=== PATIENT | male | born 1965 | race Caucasian/White ===

== ENCOUNTER 2020-06-02 15:00 | Outpatient (RCR) | payer OTHER, SELFPAY ==
--- NOTE | 2020-05-29 09:31 | HO.TMSDAILY2 ---
TMS Daily Progress Note Daily TMS Progress Note Week #: 6 Treatment #(09-26): 34 PHQ-9 Pre-Treatment (09-23): 17 PHQ-9 Most Recent (09-23): 7 Reviewed: TMS Tech Note Reviewed Verification: I have reviewed the TMS New Car Get Ready Mechanic Note and agree with the contents. The patient remains a candidate to continue TMS treatment per protocol.
--- NOTE | 2020-05-29 21:52 | HO.TMSDAILY2 ---
TMS Daily Progress Note Daily TMS Progress Note Week #: 6 Treatment #(09-26): 33 PHQ-9 Pre-Treatment (09-23): 17 PHQ-9 Most Recent (09-23): 7 Reviewed: TMS Tech Note Reviewed Verification: I have reviewed the TMS Critical Systems Technician Note and agree with the contents. The patient remains a candidate to continue TMS treatment per protocol.
--- NOTE | 2020-06-01 22:56 | P.PNPS_ITS ---
TMS Daily Progress Note Daily TMS Progress Note Week #: 8 Treatment #(09-26): 35 PHQ-9 Pre-Treatment (09-23): 17 PHQ-9 Most Recent (09-23): 7 NAHOMY-7 Pre-Treatment (0-21): 11 NAHOMY-7 Most Recent (0-21): 6 CGI-I Most Recent: 0 = Not Assessed Q-LES-Q-SF Most Recent: 75 Reviewed: TMS Tech Note Reviewed Verification: I have reviewed the TMS Ship Superintendent Note and agree with the contents. The patient remains a candidate to continue TMS treatment per protocol.
--- NOTE | 2020-06-02 15:30 | P.PNPS_ITS ---
TMS Daily Progress Note Daily TMS Progress Note Week #: 8 Treatment #(09-26): 35 PHQ-9 Pre-Treatment (09-23): 17 PHQ-9 Most Recent (09-23): 7 Reviewed: TMS Tech Note Reviewed Verification: I have reviewed the TMS Production Corrugator Note and agree with the contents. The patient remains a candidate to continue TMS treatment per protocol.
--- NOTE | 2020-06-02 15:35 | P.PNPS_ITS ---
TMS Daily Progress Note Daily TMS Progress Note Week #: 8 Treatment #(09-26): 36 PHQ-9 Pre-Treatment (09-23): 17 PHQ-9 Most Recent (09-23): 6 Reviewed: TMS Tech Note Reviewed Verification: I have reviewed the TMS Drywall Finisher Foreman Note and agree with the contents. The patient remains a candidate to continue TMS treatment per protocol.
--- NOTE | 2020-06-02 17:35 | HO.TMSDCTER ---
TMS Discharge-Termination Chart Review Treatments Completed: 36 Initial MT%: 85% Final MT%: 120% Was Remapping Required: No Clinical Evaluation/Review PHQ-9 Pre-Treatment (1-): 17 PHQ-9 Post-Treatment (-): 6 NAHOMY-7 Pre-Treatment (0-21): 11 NAHOMY-7 Most Recent (0-21): 6 CGI-I Initial: 0 = Not Assessed CGI-I Post Treatment: 1 = Very Much Improved Q-LES-Q-SF Pre-Treatment: 63 Q-LES-Q-SF Post-Treatment: 71 Adverse Effects Local Pain/Discomfort: No Headache: No Facial Pain: No Seizure: No Impression Impression: Robust response to TMS Patient reports he is also finding therapy helpful Recommendations TMS: Discontinue Medication Changes: None Follow-up w/ Prescriber: Zuly Escalona MD
== END 2020-06-02 17:00 | disposition home or self-care (01) ==
LOC: HO.PTMS 15:00
PROVIDERS: Visit Provider Psychiatry & Neurology Psychiatry
DX: F33.2 Major depressive disorder, recurrent severe without psychotic features (principal)
CPT/HCPCS: 90868